=== PATIENT | female | born 1975 | race Caucasian/White ===

== ENCOUNTER 2019-05-04 18:48 | Emergency (ER) | payer SELFPAY ==
[~2019-05-04] VITALS: Ht 167.6 cm; Wt 134.0 kg
[~2019-05-04 18:48] MED LIST: ABILIFY10 MG PO; ABILIFY15 MG PO; ADVAIR DISK1 INH; ATENOLOL25 MG PO; BENADRYL 50MG C50 MG PO; BENADRYL25 MG PO; CIPROFLOXACN500 MG PO; GNP MELATONIN MA5 MG OR; IBUPROFEN800 MG PO; LITHIUM CARB300 M2 PO; LITHIUM CARB300 MG PO; METOPROL TAR100 MG PO; MOTRIN800 MG/TAB PO; NAPROSYN500 MG PO; NEBULIZE1 PO; ONDANSETRON4 MG OR; ROBITUSSIN AC10 ML PO; TRAZODONE150 MG PO; ULTRAM50 M1 PO; ULTRAM50 MG OR; VENTOLIN HFA IN; XANAX0.5 MG PO; ZOFRAN ODT4 MG PO; ZOFRAN ODT8 MG PO; ZOLOFT100 MG PO; lithium
[2019-05-04] MEDS ORDERED: MELATONIN5 M5 PO (19:14)
[2019-05-04] MEDS ORDERED: PRAZOSIN HCL2 M1 PO (19:15)
[2019-05-04] MEDS ORDERED: LISINOP/HCTZ1 TA2 PO (19:15)
[2019-05-04] MEDS ORDERED: MIRTAZAPINE30 M2 PO (19:15)
[2019-05-04] MEDS ORDERED: MELOXICAM15 MG PO (19:16)
[2019-05-04] MEDS ORDERED: PROAIR HFA108 MCG/AC PO (19:16)
[2019-05-04] MEDS ORDERED: ALLOPURINOL300 MG PO (19:16)
[2019-05-04] MEDS ORDERED: MICRO-K10 MEQ PO (19:17)
[2019-05-04] MEDS ORDERED: ZIPRASIDONE HCL40 M1 PO ×2 (19:17→19:18)
[2019-05-04] MEDS ORDERED: LEVOTHYROXIN50 MCG PO (19:18)
[2019-05-04] MEDS ORDERED: ZIPRASIDONE HCL80 MG PO (19:18)
[2019-05-04] MEDS ORDERED: PREDNISONE50 MG PO (20:00)
[2019-05-04 20:05] VITALS: BP 116/79
== END 2019-05-04 20:05 | disposition home or self-care (01) | DRG 554 ==
LOC: ED 18:48
DX: M17.11 Unilateral primary osteoarthritis, right knee (principal); I10 Essential (primary) hypertension; M06.9 Rheumatoid arthritis, unspecified